=== PATIENT | male | born 1960 | race Caucasian/White ===

== ENCOUNTER → 2017-10-20 | Outpatient (CLI) | payer OTHER ==
[2017-10-20 08:33] LABS: microscopic required? NO
[2017-10-20 08:43] LABS: BASOPHIL % 0.4 % (0-2); PLATELET COUNT 217 x10^3mcL (130-400); UA SPECIFIC GRAVITY 1.015 (1.005-1.035); urine erythrocyte NEGATIVE (NEGATIVE)
[2017-10-20 08:44] LABS: RED CELL DISTRIBUTION WIDTH 14.6 % (11.5-14.5)
[2017-10-20 09:03] LABS: ALBUMIN 3.9 g/dL (3.4-5.0); BILIRUBIN TOTAL 0.84 mg/dL (0.20-1.00); CALCIUM 8.7 mg/dL (8.5-10.1); CARBON DIOXIDE 27.4 mmol/L (21-32); CREATININE SERUM 1.4 mg/dL (0.7-1.3); FREE T4 1.23 ng/dL (0.76-1.46); POTASSIUM SERUM 4.2 mmol/L (3.5-5.1); TOTAL PROTEIN, SERUM 7.9 g/dL (6.4-8.2)
[2017-10-20 09:05] LABS: CHOLESTEROL/HDL RATIO 2.5
[2017-10-21 11:14] LABS: microalbumin:creatinine ratio < 3.3 (0.0-30.0)
== END | disposition home or self-care (01) ==
LOC: LB 07:48
PROVIDERS: Family Medicine Geriatric Medicine
DX: E11.22 Type 2 diabetes mellitus with diabetic chronic kidney disease (principal); I10 Essential (primary) hypertension; E78.5 Hyperlipidemia, unspecified; Z13.29 Encounter for screening for other suspected endocrine disorder; Z12.11 Encounter for screening for malignant neoplasm of colon; Z13.21 Encounter for screening for nutritional disorder; Z12.5 Encounter for screening for malignant neoplasm of prostate; Z13.0 Encounter for screening for diseases of the blood and blood-forming organs and certain disorders involving the immune mechanism
CPT/HCPCS: 82652; 84153; 84439

== ENCOUNTER → 2017-11-02 | Outpatient (CLI) | payer OTHER | END | disposition home or self-care (01) | LOC: CA 14:02 | DX: F90.0 Attention-deficit hyperactivity disorder, predominantly inattentive type (principal) ==

== ENCOUNTER 2017-11-25 06:39 | Day surgery (SDC) | payer OTHER ==
[~2017-11-25] VITALS: Ht 182.9 cm; Wt 108.9 kg
[2017-11-25 07:23] VITALS: BP 140/75
[2017-11-25 10:44] VITALS: BP 130/77
== END 2017-11-25 10:30 | disposition home or self-care (01) ==
LOC: DS 06:39 → GI 07:30 → OR 07:30 → DS 10:30
PROVIDERS: Internal Medicine Gastroenterology
PROC: 0DB68ZX Excision of Stomach, Via Natural or Artificial Opening Endoscopic, Diagnostic (ICD-10-PCS; principal; 2017-11-25 07:30)
PROC: 0DJD8ZZ Inspection of Lower Intestinal Tract, Via Natural or Artificial Opening Endoscopic (ICD-10-PCS; 2017-11-25 07:30)
DX: K21.9 Gastro-esophageal reflux disease without esophagitis (principal); K44.9 Diaphragmatic hernia without obstruction or gangrene; K57.30 Diverticulosis of large intestine without perforation or abscess without bleeding; K92.1 Melena; E66.9 Obesity, unspecified; Z68.32 Body mass index [BMI] 32.0-32.9, adult; Z85.528 Personal history of other malignant neoplasm of kidney; Z90.5 Acquired absence of kidney; Z12.11 Encounter for screening for malignant neoplasm of colon
CPT/HCPCS: 43235; 45378; 82962; J1610; J2250; J2310; J3010; J3490

== ENCOUNTER → 2018-12-22 | Outpatient (CLI) | payer OTHER ==
[2018-12-22 11:51] LABS: microscopic required? NO
[2018-12-22 12:04] LABS: BASOPHIL % 0.6 % (0-2); PLATELET COUNT 227 x10^3mcL (130-400); RED CELL DISTRIBUTION WIDTH 14.4 % (11.5-14.5)
[2018-12-22 12:10] LABS: UA SPECIFIC GRAVITY 1.015 (1.005-1.035); urine erythrocyte NEGATIVE (NEGATIVE)
[2018-12-22 12:21] LABS: CREATININE UR 68.1 mg/dL
[2018-12-22 12:21] LABS: ALBUMIN 4.1 g/dL (3.4-5.0); ALKALINE PHOSPHATASE 102 U/L (46-116); ALT/SGPT 27 U/L (16-63); AST/SGOT 18 U/L (15-37); BILIRUBIN TOTAL 0.8 mg/dL (0.20-1.00); CALCIUM 8.5 mg/dL (8.5-10.1); CARBON DIOXIDE 26.6 mmol/L (21-32); CHLORIDE SERUM 104 mmol/L (98-107); CREATININE SERUM 1.3 mg/dL (0.7-1.3); GFR1 > 60 mL/min; GLUCOSE SERUM 127 mg/dL (74-106); HDL CHOLESTEROL 35 mg/dL (40-60); PHOSPHOROUS 3.6 mg/dL (2.5-4.9); POTASSIUM SERUM 4.5 mmol/L (3.5-5.1); SODIUM SERUM 142 mmol/L (136-145); TRIGLYCERIDES 97 mg/dL (<150)
[2018-12-22 12:22] LABS: CHOLESTEROL 114 mg/dL (<200); CHOLESTEROL/HDL RATIO 3.3
[2018-12-23 09:08] LABS: microalbumin:creatinine ratio 9.2 (0.0-30.0)
[2018-12-23 13:05] LABS: PTH INTACT 65 pg/mL (15-65)
== END | disposition home or self-care (01) ==
LOC: LB 11:28
DX: R97.20 Elevated prostate specific antigen [PSA] (principal); N40.1 Benign prostatic hyperplasia with lower urinary tract symptoms; I10 Essential (primary) hypertension; E11.9 Type 2 diabetes mellitus without complications; E78.5 Hyperlipidemia, unspecified
CPT/HCPCS: 84153

== ENCOUNTER → 2019-07-27 | Outpatient (CLI) | payer OTHER ==
[2019-07-27 07:45] LABS: microscopic required? NO
[2019-07-27 07:53] LABS: BASOPHIL % 0.2 % (0-2); PLATELET COUNT 204 x10^3mcL (130-400)
[2019-07-27 08:02] LABS: RED CELL DISTRIBUTION WIDTH 14.6 % (11.5-14.5)
[2019-07-27 08:10] LABS: MAGNESIUM 2.1 mg/dL (1.8-2.4)
[2019-07-27 08:22] LABS: ALBUMIN 3.8 g/dL (3.4-5.0); ALKALINE PHOSPHATASE 84 U/L (46-116); ALT/SGPT 28 U/L (16-63); AST/SGOT 11 U/L (15-37); BILIRUBIN TOTAL 0.75 mg/dL (0.20-1.00); CALCIUM 8.7 mg/dL (8.5-10.1); CARBON DIOXIDE 26.2 mmol/L (21-32); CHLORIDE SERUM 105 mmol/L (98-107); CREATININE SERUM 1.3 mg/dL (0.7-1.3); GFR1 > 60 mL/min; GLUCOSE SERUM 94 mg/dL (74-106); HDL CHOLESTEROL 35 mg/dL (40-60); POTASSIUM SERUM 4.1 mmol/L (3.5-5.1); SODIUM SERUM 139 mmol/L (136-145); TOTAL PROTEIN, SERUM 7.2 g/dL (6.4-8.2); TRIGLYCERIDES 68 mg/dL (<150)
[2019-07-27 08:23] LABS: CHOLESTEROL 103 mg/dL (<200); CHOLESTEROL/HDL RATIO 2.9
[2019-07-27 08:59] LABS: urine erythrocyte NEGATIVE (NEGATIVE)
== END | disposition home or self-care (01) ==
LOC: LB 07:16
DX: E11.65 Type 2 diabetes mellitus with hyperglycemia (principal); I10 Essential (primary) hypertension; E78.5 Hyperlipidemia, unspecified
CPT/HCPCS: 84402; 84403

== ENCOUNTER → 2019-12-13 | Outpatient (CLI) | payer OTHER | END | disposition home or self-care (01) | LOC: CA 16:36 | DX: F90.0 Attention-deficit hyperactivity disorder, predominantly inattentive type (principal) ==

== ENCOUNTER 2020-02-13 14:20 | Emergency (ER) | payer OTHER | END 2020-02-13 17:01 | disposition left against medical advice (07) | LOC: ED 14:20 | DX: Z53.21 Procedure and treatment not carried out due to patient leaving prior to being seen by health care provider (principal) ==

== ENCOUNTER → 2020-02-16 | Outpatient (CLI) | payer OTHER ==
[2020-02-16 10:15] LABS: BASOPHIL % 0.4 % (0.2-1.5); PLATELET COUNT 224 x10^3mcL (152-348)
[2020-02-16 11:12] LABS: RED CELL DISTRIBUTION WIDTH 14.7 % (12.1-16.2)
[2020-02-16 11:43] LABS: ALKALINE PHOSPHATASE 77 U/L (46-116); ALT/SGPT 39 U/L (16-63); AST/SGOT 11 U/L (15-37); BILIRUBIN TOTAL 1.04 mg/dL (0.20-1.00); CARBON DIOXIDE 26.7 mmol/L (21-32); CHLORIDE SERUM 105 mmol/L (98-107); CREATININE SERUM 1.1 mg/dL (0.7-1.3); FREE T4 1.18 ng/dL (0.76-1.46); GFR1 > 60 mL/min; GLUCOSE SERUM 89 mg/dL (74-106); MAGNESIUM 2.1 mg/dL (1.8-2.4); PHOSPHOROUS 3.5 mg/dL (2.5-4.9); POTASSIUM SERUM 3.8 mmol/L (3.5-5.1); SODIUM SERUM 139 mmol/L (136-145); TOTAL PROTEIN, SERUM 7.4 g/dL (6.4-8.2); TRIGLYCERIDES 98 mg/dL (<150)
[2020-02-16 12:52] LABS: CHOLESTEROL 87 mg/dL (<200); CHOLESTEROL/HDL RATIO 2.7; HDL CHOLESTEROL 32 mg/dL (40-60)
[2020-02-16 19:44] LABS: microscopic required? NO
[2020-02-16 20:15] LABS: UA SPECIFIC GRAVITY 1.025 (1.005-1.035); urine erythrocyte NEGATIVE (NEGATIVE)
[2020-02-17 09:10] LABS: CREATININE UR 151.5 mg/dL (Not Estab.)
[2020-02-17 09:10] LABS: PTH INTACT 33 pg/mL (15-65)
== END | disposition home or self-care (01) ==
LOC: LB 08:56
DX: I10 Essential (primary) hypertension (principal); E55.9 Vitamin D deficiency, unspecified; E11.9 Type 2 diabetes mellitus without complications; E78.5 Hyperlipidemia, unspecified; Z13.0 Encounter for screening for diseases of the blood and blood-forming organs and certain disorders involving the immune mechanism; Z13.29 Encounter for screening for other suspected endocrine disorder; Z12.5 Encounter for screening for malignant neoplasm of prostate
CPT/HCPCS: 82652; 84153; 84439